=== PATIENT | male | born 1960 | race Two or more races ===

== ENCOUNTER 2024-04-20 03:21 | Emergency (ER) | payer MEDICAID, OTHER ==
[~2024-04-20] VITALS: Ht 177.8 cm; Wt 77.0 kg
[2024-04-20 03:21] VITALS: BP 0/0
[2024-04-20] MEDS ORDERED: EPINEPHrine HCL 1 MG/10 ML SYRG IV ONE (03:22)
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
[2024-04-20 03:45] VITALS: PULSE 0; RESP 0; O2SAT 0
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
== END 2024-04-20 03:30 ==
LOC: EDBD 03:21 → ER 03:21
DX: I46.9 Cardiac arrest, cause unspecified (principal); F17.200 Nicotine dependence, unspecified, uncomplicated; V89.2XXA Person injured in unspecified motor-vehicle accident, traffic, initial encounter; Y93.89 Activity, other specified; Y92.488 Other paved roadways as the place of occurrence of the external cause; Y99.8 Other external cause status
CPT/HCPCS: 92950; 99285; J0171